=== PATIENT | male | born 1930 | race Two or more races ===

== ENCOUNTER 2017-05-16 08:37 | Outpatient (CLI) | payer OTHER ==
[~2017-05-16] VITALS: Ht 152.4 cm; Wt 72.6 kg
[~2017-05-16 08:37] MED LIST: CLONAZEPAM1 MG
== END 2017-05-16 09:00 | disposition home or self-care (01) ==
LOC: OFIC 805 08:37
DX: H61.23 Impacted cerumen, bilateral (principal)